=== PATIENT | male | born 1990 | race African-American/Black ===

== ENCOUNTER 2016-09-16 15:39 | Emergency (ER) | payer SELFPAY ==
[~2016-09-16] VITALS: Ht 170.2 cm; Wt 70.0 kg
[~2016-09-16 15:39] MED LIST: AMOXICILLIN500 MG OR; AMOXICILLIN500 MG PO; ATARAX PO; BACTROBAN2 % EX; BUSPIRONE10 MG PO; CEPHALEXIN500 MG PO; DILANTIN100 MG PO; FLUARIX QUADRIV1 INJ IM; FLUZONE SPLT1 M1 IM; HALDOL0.5 MG/TAB PO; LAMICTAL100 M1 PO; LAMICTAL150 M1 PO; LEVETIRACETAM500 MG PO; LORATADINE10 M1 PO; MEDDOSEPAK PO; NAPROSYN500 MG PO; NO; NO MED; PHENYTOIN EX100 MG PO; PROZAC20 MG PO; RELENZA IN; RISPERDAL0.5 MG PO; RISPERDAL1 MG PO; ROCEPHIN 1 GM1 GM IM; ULTRAM50 MG OR; ZOFRAN ODT4 MG PO; ZOFRAN4 MG/TAB PO; [UNRECOGNIZED DRUG - OTHER]
[2016-09-16] MEDS ORDERED: LAMICTAL25 M2 PO (15:46)
[2016-09-16 17:26] LABS: HEMATOCRIT 40.2 % (39.0-50.0); IMMATURE GRANULOCYTES 0.2 % (0.0-1.0); MEAN CELL VOLUME 84.5 fL CALC (80.0-100.0); MEAN CORPUSCULAR HGB 29.4 pG CALC (26.0-32.0); MEAN CORPUSCULAR HGB CONC 34.8 g/L CALC (32.0-36.0); NEUT# 3.47 thou/uL (1.82-7.42); RED BLOOD COUNT 4.76 mill/uL (4.70-6.10); RED CELL DISTRI WIDTH 12.2 % (11.5-15.5)
[2016-09-16 17:36] LABS: ALBUMIN 4.4 g/dL (3.2-5.0); ALKALINE PHOSPHATASE 119 u/l (38-126); ANION GAP 15 (6-22 (CALC)); BILIRUBIN, TOTAL 0.8 mg/dL (0.0-1.4); BUN 12 mg/dL (9-20); BUN/CREATININE RATIO 12 (12-20 (CALC)); CALCIUM 9.4 mg/dL (8.4-10.2); CARBON DIOXIDE 26 mmol/l (22-30); CHLORIDE 104 mmol/l (95-108); CREATININE 0.9 mg/dL (0.7-1.3); GFR > 60 ML/MIN (>=60 (CALC)); GFR FOR AFR.AMER. > 60 ML/MIN (>=60 (CALC)); GLUCOSE 87 mg/dL (75-110); POTASSIUM 3.8 mmol/l (3.5-5.1); SGOT/AST 28 u/l (17-59); SGPT/ALT 21 u/l (21-72); SODIUM 142 mmol/l (137-146); TOTAL PROTEIN 7.2 g/dL (6.3-8.2)
[2016-09-16 17:47] LABS: MYOGLOBIN 20 ng/mL (0 - 121)
[2016-09-16 20:35] LABS: URINE BILIRUBIN - DIPSTICK NEGATIVE (NEGATIVE); URINE BLOOD DIPSTICK NEGATIVE (NEGATIVE); URINE CLARITY CLEAR; URINE COLOR YELLOW; URINE GLUCOSE - DIPSTICK NEGATIVE (NEGATIVE); URINE KETONE NEGATIVE (NEGATIVE); URINE LEUK ESTERASE NEGATIVE (NEGATIVE); URINE NITRITE - DIPSTICK NEGATIVE (Negative); URINE PROTEIN - DIPSTICK NEGATIVE (NEG-TRACE); URINE UROBILINOGEN - DIPSTICK 0.2 E.U./dL (0.2)
[2016-09-16 20:38] LABS: BARBITURATES NEGATIVE (NEGATIVE); COCAINE NEGATIVE (NEGATIVE); METHADONE NEGATIVE (NEGATIVE); OXCYCODONE NEGATIVE (NEGATIVE); TETRAHYDROCANNABIONOL NEGATIVE (NEGATIVE); TRICYLIC ANTIDEPRESSANTS NEGATIVE (NEGATIVE)
[2016-09-16 20:39] VITALS: BP 138/64
== END 2016-09-16 20:41 | disposition short-term general hospital (02) | DRG 93 ==
LOC: ED 15:39
PROVIDERS: Emergency Medicine
DX: R27.0 Ataxia, unspecified (principal); F31.9 Bipolar disorder, unspecified; G40.909 Epilepsy, unspecified, not intractable, without status epilepticus

== ENCOUNTER 2016-09-23 17:27 | Emergency (ER) | payer SELFPAY ==
[~2016-09-23] VITALS: Ht 170.2 cm; Wt 65.0 kg
[~2016-09-23 17:27] MED LIST changes: +LAMICTAL25 M2 PO
[2016-09-23 19:20] LABS: HEMATOCRIT 47.7 % (39.0-50.0); IMMATURE GRANULOCYTES 0.2 % (0.0-1.0); MEAN CELL VOLUME 89.2 fL CALC (80.0-100.0); MEAN CORPUSCULAR HGB 29.9 pG CALC (26.0-32.0); MEAN CORPUSCULAR HGB CONC 33.5 g/L CALC (32.0-36.0); NEUT# 5.86 thou/uL (1.82-7.42); RED BLOOD COUNT 5.35 mill/uL (4.70-6.10); RED CELL DISTRI WIDTH 12.3 % (11.5-15.5)
[2016-09-23 20:22] LABS: ALBUMIN 4.5 g/dL (3.2-5.0); ALKALINE PHOSPHATASE 137 u/l (38-126); ANION GAP 16 (6-22 (CALC)); BILIRUBIN, TOTAL 0.9 mg/dL (0.0-1.4); BUN 13 mg/dL (9-20); BUN/CREATININE RATIO 14 (12-20 (CALC)); CALCIUM 9.6 mg/dL (8.4-10.2); CARBON DIOXIDE 26 mmol/l (22-30); CHLORIDE 105 mmol/l (95-108); CREATININE 0.9 mg/dL (0.7-1.3); GFR > 60 ML/MIN (>=60 (CALC)); GFR FOR AFR.AMER. > 60 ML/MIN (>=60 (CALC)); GLUCOSE 82 mg/dL (75-110); POTASSIUM 4.2 mmol/l (3.5-5.1); SGOT/AST 26 u/l (17-59); SGPT/ALT 33 u/l (21-72); SODIUM 143 mmol/l (137-146)
[2016-09-23 22:55] VITALS: BP 112/68
== END 2016-09-23 23:00 | disposition home or self-care (01) | DRG 93 ==
LOC: ED 17:27
PROVIDERS: Emergency Medicine
DX: R27.0 Ataxia, unspecified (principal); F31.9 Bipolar disorder, unspecified; G40.909 Epilepsy, unspecified, not intractable, without status epilepticus

== ENCOUNTER 2016-11-20 16:54 | Emergency (ER) | payer SELFPAY ==
[~2016-11-20] VITALS: Ht 170.2 cm; Wt 70.0 kg
[2016-11-20] MEDS ORDERED: BACTRIM DS1 TAB PO (17:44)
[2016-11-20] MEDS ORDERED: TAMSULOSIN0.4 MG PO (17:44)
[2016-11-20 17:46] LABS: URINE BLOOD DIPSTICK SMALL (NEGATIVE); URINE CLARITY TURBID; URINE COLOR YELLOW; URINE GLUCOSE - DIPSTICK NEGATIVE (NEGATIVE); URINE KETONE >=80 mg/dL (NEGATIVE); URINE LEUK ESTERASE NEGATIVE (Negative); URINE NITRITE - DIPSTICK POSITIVE (Negative); URINE PROTEIN - DIPSTICK TRACE mg/dL (NEG-TRACE); URINE SPECIFIC GRAVITY 1.025
[2016-11-20 17:47] LABS: URINE BILIRUBIN - DIPSTICK SMALL (NEGATIVE)
[2016-11-20 17:51] LABS: URINE AMORPH SEDIMENT MODERATE hpf (NONE-FER); URINE MUCUS MANY hpf (NONE-FEW); URINE SQUAMOUS EPITHELIAL CELL FEW EPI/hpf (0-FEW)
[2016-11-20 17:53] LABS: URINE BACTERIA MANY hpf
[2016-11-20 18:28] VITALS: BP 123/63
== END 2016-11-20 18:45 | disposition home or self-care (01) | DRG 696 ==
LOC: ED 16:54
PROVIDERS: Emergency Medicine
PROC: 0T9B70Z Drainage of Bladder with Drainage Device, Via Natural or Artificial Opening (ICD-10-PCS; principal; 2016-11-20)
DX: R33.9 Retention of urine, unspecified (principal); N39.0 Urinary tract infection, site not specified; B95.7 Other staphylococcus as the cause of diseases classified elsewhere

== ENCOUNTER 2017-04-21 13:37 | Emergency (ER) | payer OTHER ==
[~2017-04-21] VITALS: Ht 170.2 cm; Wt 60.0 kg
[~2017-04-21 13:37] MED LIST changes: +BACTRIM DS1 TAB PO; +TAMSULOSIN0.4 MG PO
[2017-04-21 15:20] VITALS: BP 132/68
== END 2017-04-21 15:30 | disposition home or self-care (01) | DRG 125 ==
LOC: ED 13:37
PROC: 0HQ1XZZ Repair Face Skin, External Approach (ICD-10-PCS; principal; 2017-04-21)
DX: S01.112A Laceration without foreign body of left eyelid and periocular area, initial encounter (principal); V00.811A Fall from moving wheelchair (powered), initial encounter; Y93.89 Activity, other specified; Y92.009 Unspecified place in unspecified non-institutional (private) residence as the place of occurrence of the external cause

== ENCOUNTER 2017-04-29 09:53 | Emergency (ER) | payer OTHER ==
[~2017-04-29] VITALS: Ht 170.2 cm; Wt 60.0 kg
[2017-04-29 10:10] VITALS: BP 122/76
== END 2017-04-29 10:10 | disposition home or self-care (01) | DRG 950 ==
LOC: ED 09:53
DX: S01.112D Laceration without foreign body of left eyelid and periocular area, subsequent encounter (principal)

== ENCOUNTER 2017-06-30 21:02 | Emergency (ER) | payer OTHER ==
[~2017-06-30] VITALS: Ht 170.2 cm; Wt 60.0 kg
[2017-06-30 22:33] LABS: HEMATOCRIT 42.3 % (39.0-50.0); HEMOGLOBIN 14.8 g/dl (14.0-18.0); IMMATURE GRANULOCYTES 0.2 % (0.0-1.0); MEAN CELL VOLUME 84.6 fL CALC (80.0-100.0); MEAN CORPUSCULAR HGB 29.6 pG CALC (26.0-32.0); NEUT# 5.54 thou/uL (1.82-7.42)
[2017-06-30 22:47] LABS: ALBUMIN 4.2 g/dL (3.2-5.0); ALKALINE PHOSPHATASE 129 u/l (38-126); ANION GAP 16 (6-22 (CALC)); BILIRUBIN, TOTAL 0.8 mg/dL (0.0-1.4); BUN 13 mg/dL (9-20); BUN/CREATININE RATIO 11 (12-20 (CALC)); CARBON DIOXIDE 26 mmol/l (22-30); CHLORIDE 106 mmol/l (95-108); POTASSIUM 4.5 mmol/l (3.5-5.1); SGOT/AST 15 u/l (17-59); SGPT/ALT 17 u/l (21-72); SODIUM 144 mmol/l (137-146); TOTAL PROTEIN 6.5 g/dL (6.3-8.2)
[2017-06-30 22:50] LABS: CREATININE 1.2 mg/dL (0.7-1.3); GFR > 60 ML/MIN (>=60 (CALC)); GFR FOR AFR.AMER. > 60 ML/MIN (>=60 (CALC))
[2017-06-30 23:43] LABS: URINE BILIRUBIN - DIPSTICK NEGATIVE (NEGATIVE); URINE BLOOD DIPSTICK NEGATIVE (NEGATIVE); URINE CLARITY SL CLOUDY; URINE COLOR YELLOW; URINE GLUCOSE - DIPSTICK NEGATIVE (NEGATIVE); URINE KETONE NEGATIVE (NEGATIVE); URINE LEUK ESTERASE NEGATIVE (NEGATIVE); URINE NITRITE - DIPSTICK NEGATIVE (Negative); URINE PH 6.5 (4.5-8.0); URINE PROTEIN - DIPSTICK NEGATIVE (NEG-TRACE); URINE SPECIFIC GRAVITY 1.015
[2017-06-30 23:48] LABS: BARBITURATES NEGATIVE (NEGATIVE); COCAINE NEGATIVE (NEGATIVE); METHADONE NEGATIVE (NEGATIVE); OXCYCODONE NEGATIVE (NEGATIVE); TETRAHYDROCANNABIONOL NEGATIVE (NEGATIVE); TRICYLIC ANTIDEPRESSANTS NEGATIVE (NEGATIVE)
[2017-07-01 01:25] VITALS: BP 117/61
== END 2017-07-01 01:25 | disposition home or self-care (01) | DRG 948 ==
LOC: ED 21:02
PROVIDERS: Emergency Medicine
DX: R53.1 Weakness (principal); I69.354 Hemiplegia and hemiparesis following cerebral infarction affecting left non-dominant side; G40.909 Epilepsy, unspecified, not intractable, without status epilepticus; Z99.3 Dependence on wheelchair

== ENCOUNTER 2017-11-19 12:42 | Emergency (ER) | payer OTHER ==
[~2017-11-19] VITALS: Ht 170.2 cm; Wt 60.0 kg
[2017-11-19] MEDS ORDERED: AMOXICILLIN500 MG PO (13:29)
[2017-11-19 13:30] VITALS: BP 128/79
== END 2017-11-19 13:33 | disposition home or self-care (01) ==
LOC: ED 12:42
DX: S00.511A Abrasion of lip, initial encounter (principal); I69.398 Other sequelae of cerebral infarction; G40.909 Epilepsy, unspecified, not intractable, without status epilepticus; F31.9 Bipolar disorder, unspecified; W18.39XA Other fall on same level, initial encounter; Y93.89 Activity, other specified; Y92.009 Unspecified place in unspecified non-institutional (private) residence as the place of occurrence of the external cause

== ENCOUNTER 2018-02-27 09:23 | Emergency (ER) | payer OTHER ==
[~2018-02-27] VITALS: Ht 170.2 cm; Wt 65.9 kg
[2018-02-27 10:19] VITALS: BP 130/62
== END 2018-02-27 10:42 | disposition home or self-care (01) ==
LOC: ED 09:23
DX: S01.511A Laceration without foreign body of lip, initial encounter (principal); W01.0XXA Fall on same level from slipping, tripping and stumbling without subsequent striking against object, initial encounter; Y93.01 Activity, walking, marching and hiking; Y92.008 Other place in unspecified non-institutional (private) residence as the place of occurrence of the external cause

== ENCOUNTER 2019-01-09 13:53 | Emergency (ER) | payer MEDICAID ==
[~2019-01-09] VITALS: Ht 170.2 cm; Wt 45.4 kg
[2019-01-09] MEDS ORDERED: BACTROBAN TOP (15:23)
[2019-01-09 15:51] VITALS: BP 114/54
== END 2019-01-09 15:51 | disposition home or self-care (01) ==
LOC: ED 13:53
DX: S00.81XA Abrasion of other part of head, initial encounter (principal); S01.511A Laceration without foreign body of lip, initial encounter; G40.909 Epilepsy, unspecified, not intractable, without status epilepticus; F31.9 Bipolar disorder, unspecified; W05.0XXA Fall from non-moving wheelchair, initial encounter; Z86.73 Personal history of transient ischemic attack (TIA), and cerebral infarction without residual deficits

== ENCOUNTER 2019-02-01 10:40 | Emergency (ER) | payer MEDICAID ==
[~2019-02-01] VITALS: Ht 170.2 cm; Wt 70.0 kg
[~2019-02-01 10:40] MED LIST changes: +BACTROBAN TOP
[2019-02-01] MEDS ORDERED: AMOXICILLIN500 MG PO (13:34)
[2019-02-01 13:48] VITALS: BP 109/70
== END 2019-02-01 14:10 | disposition home or self-care (01) ==
LOC: ED 10:40
DX: S01.112A Laceration without foreign body of left eyelid and periocular area, initial encounter (principal); S01.511A Laceration without foreign body of lip, initial encounter; S00.31XA Abrasion of nose, initial encounter; I69.954 Hemiplegia and hemiparesis following unspecified cerebrovascular disease affecting left non-dominant side; G40.909 Epilepsy, unspecified, not intractable, without status epilepticus; W05.0XXA Fall from non-moving wheelchair, initial encounter; Y92.009 Unspecified place in unspecified non-institutional (private) residence as the place of occurrence of the external cause; Z99.3 Dependence on wheelchair

== ENCOUNTER 2019-02-08 11:28 | Emergency (ER) | payer MEDICAID ==
[~2019-02-08] VITALS: Ht 170.2 cm; Wt 60.0 kg
[2019-02-08 12:21] VITALS: BP 107/44
== END 2019-02-08 12:21 | disposition home or self-care (01) ==
LOC: ED 11:28
DX: S01.112D Laceration without foreign body of left eyelid and periocular area, subsequent encounter (principal); X58.XXXD Exposure to other specified factors, subsequent encounter

== ENCOUNTER 2019-06-21 | Emergency (ER) | payer MEDICAID ==
[2019-06-21 14:46] LABS: HEMATOCRIT 45.2 % (39.0-50.0); HEMOGLOBIN 15.4 g/dl (14.0-18.0); IMMATURE GRANULOCYTES 0.3 % (0.0-5.0); MEAN CELL VOLUME 85.8 fL CALC (80.0-100.0); MEAN CORPUSCULAR HGB 29.2 pG CALC (26.0-32.0); MEAN CORPUSCULAR HGB CONC 34.1 g/L CALC (32.0-36.0); NEUT# 7.26 thou/uL (1.82-7.42); RED BLOOD COUNT 5.27 mill/uL (4.70-6.10)
[2019-06-21 15:02] LABS: ALBUMIN 4.6 g/dL (3.2-5.0); ALKALINE PHOSPHATASE 108 u/l (38-126); ANION GAP 16 (6-22 (CALC)); BILIRUBIN, TOTAL 1.6 mg/dL (0.0-1.4); BUN 9 mg/dL (9-20); BUN/CREATININE RATIO 8 (12-20 (CALC)); CARBON DIOXIDE 23 mmol/l (22-30); CHLORIDE 105 mmol/l (95-108); CREATININE 1.1 mg/dL (0.7-1.3); GFR > 60 ML/MIN (>=60 (CALC)); GFR FOR AFR.AMER. > 60 ML/MIN (>=60 (CALC)); POTASSIUM 4.4 mmol/l (3.5-5.1); SGOT/AST 31 u/l (17-59); SODIUM 139 mmol/l (137-146); TOTAL PROTEIN 7.4 g/dL (6.3-8.2)
== END 2019-06-21 17:34 | disposition home or self-care (01) ==
PROVIDERS: Emergency Medicine
DX: G40.909 Epilepsy, unspecified, not intractable, without status epilepticus (principal); T42.6X6A Underdosing of other antiepileptic and sedative-hypnotic drugs, initial encounter; Z91.128 Patient's intentional underdosing of medication regimen for other reason; Z86.73 Personal history of transient ischemic attack (TIA), and cerebral infarction without residual deficits

== ENCOUNTER 2021-02-11 11:43 | Emergency (ER) | payer MEDICAID ==
[~2021-02-11] VITALS: Ht 170.2 cm; Wt 55.0 kg
[2021-02-11 11:50] VITALS: BP 110/60
[2021-02-11 12:20] LABS: HEMATOCRIT 39.7 % (39.0-50.0); HEMOGLOBIN 13.5 g/dl (14.0-18.0); IMMATURE GRANULOCYTES 0.3 % (0.0-5.0); MEAN CELL VOLUME 88.8 fL CALC (80.0-100.0); MEAN CORPUSCULAR HGB 30.2 pG CALC (26.0-32.0); NEUT# 3.62 thou/uL (1.82-7.42); RED BLOOD COUNT 4.47 mill/uL (4.70-6.10); RED CELL DISTRI WIDTH 12.7 % (11.5-15.5)
[2021-02-11 12:38] LABS: ALBUMIN 4.2 g/dL (3.2-5.0); ALKALINE PHOSPHATASE 103 u/l (38-126); ANION GAP 16 (6-22 (CALC)); BILIRUBIN, TOTAL 1.2 mg/dL (0.0-1.4); BUN 15 mg/dL (9-20); BUN/CREATININE RATIO 20 (12-20 (CALC)); CARBON DIOXIDE 20 mmol/l (22-30); CHLORIDE 110 mmol/l (95-108); CREATININE 0.8 mg/dL (0.7-1.3); GFR > 60 ML/MIN (>=60 (CALC)); GFR FOR AFR.AMER. > 60 ML/MIN (>=60 (CALC)); POTASSIUM 4.1 mmol/l (3.5-5.1); SGOT/AST 27 u/l (17-59); SODIUM 142 mmol/l (137-146); TOTAL PROTEIN 6.8 g/dL (6.3-8.2)
[2021-02-11] MEDS ORDERED: KEPPRA500 M2 PO (12:47)
== END 2021-02-11 14:00 | disposition home or self-care (01) ==
LOC: ED 11:43
PROVIDERS: Emergency Medicine
DX: G40.409 Other generalized epilepsy and epileptic syndromes, not intractable, without status epilepticus (principal); F31.9 Bipolar disorder, unspecified; Z86.73 Personal history of transient ischemic attack (TIA), and cerebral infarction without residual deficits
CPT/HCPCS: J1953